=== PATIENT | female | born 1980 | race Hispanic/Latino ===

== ENCOUNTER 2025-04-07 20:34 | Emergency (ER) | payer SELFPAY ==
[2025-04-07] MEDS ORDERED: Acetaminophen 325 MG TAB ONE (21:53)
== END 2025-04-07 22:00 | disposition home or self-care (01) ==
LOC: NAV ERS 20:34
DX: R00.2 Palpitations (principal); R68.2 Dry mouth, unspecified; R11.0 Nausea; R42 Dizziness and giddiness; R51.9 Headache, unspecified; R29.700 NIHSS score 0
CPT/HCPCS: 87428; 93005; 99285